=== PATIENT | female | born 1995 | race Caucasian/White ===

== ENCOUNTER 2023-07-24 19:12 | Emergency (ER) | payer OTHER, SELFPAY ==
[2023-07-24 19:25] VITALS: BP 117/79; PULSE 80; RESP 20; TEMP 36.8; O2SAT 99
--- NOTE | 2023-07-24 20:01 | ED.GENADUL_ITS ---
Discharge Plan Disposition Patient Disposition: Home Discharge Details Chief Complaint: Patient Exposure Risk Clinical Impression: Exposure to blood Primary Care Provider: Erin Denise ED Provider: Emily Fenton Discharge Instructions Instructions: Body Substance Exposure (ED) Additional Instructions: Check hepatitis immunization status and see occupational medicine for further monitoring and recommendations. Referrals: Jean Saucedo NP [NURSE PRACTITIONER] - (Thursday morning) Medical Decision Making Patient with blood exposure to hair arm. No exposure to mucous membrane. Routine baseline blood exposure lab obtained. Patient is unsure of her vaccination status and will check with occupational medicine as soon as possible. She will also follow-up with occupational medicine for further monitoring. A hard Copy of exposure counseling reviewed and provided to patient at time of triage. She is stable for discharge to home and will follow-up outpatient with occupational medicine HPI General Mode of arrival: ambulatory . Date/Time Provider Initiated Documentation: 07/24/23 19:26 . Limitations to Documentation: no limitations . Information obtained by: patient . HPI Narrative: This is a 27-year-old female patient no significant past medical history who presents for evaluation after being exposed to blood from another individual while working. She reports she got blood in her hair and on her arm. Denies any exposure to any mucous membranes. Denies exposure in her eyes mouth nares.. She immediately washed the blood off. Related Data Allergies Allergy/AdvReac Type Severity Reaction Status Date / Time No Known Allergies Allergy Verified 12/14/20 11:04 General Stated Complaint: Patient Exposure Risk FLORY: 2 Review of Systems All systems reviewed & are unremarkable except as noted in HPI and below PFSH All Active Problems (Updated 07/24/23 @ 20:09 by Emily Fenton NP) Exposure to blood (Acute) Social History Smoking risk assessment performed?: No Exam Const General: cooperative, healthy appearing, comfortable and no acute distress Nutritional Appearance: thin Orientation: alert, awake and oriented x3 HENMT Head: normal to inspection, normocephalic and atraumatic Mouth: oral mucosae normal Resp Effort & Inspection: normal respiratory effort Cardio Rate: regular rate Rhythm: regular rhythm GI Inspection: normal to inspection Skin Rashes: no rashes Neuro General: patient alert, patient awake and patient oriented x3 Extrem General: normal to inspection and full ROM Course Vital Signs Vital signs: Vital Signs Temperature 36.8 C 07/24/23 19:25 Pulse 80 07/24/23 19:25 Respiratory Rate 20 07/24/23 19:25 Blood Pressure 117/79 07/24/23 19:25 Pulse Oximetry 99 07/24/23 19:25 Temperature 36.8 C 07/24/23 19:25 Pulse 80 07/24/23 19:25 Respiratory Rate 20 07/24/23 19:25 Blood Pressure 117/79 07/24/23 19:25 Blood Pressure Position Sitting 07/24/23 19:25 Pulse Oximetry 99 07/24/23 19:25 Oxygen Delivery Method Room Air 07/24/23 19:25 Oxygen Flow Rate 0 07/24/23 19:25
[2023-07-27 10:38] LABS: HIV-1/2 Ag & Ab Screen Negative (Negative)
[2023-07-27 10:48] LABS: Hepatitis C Ab w Rflx HCV PCR Negative (Negative)
[2023-07-27 11:14] LABS: Hepatitis B Surface Ag Negative (Negative)
== END 2023-07-24 20:26 | disposition home or self-care (01) ==
PROVIDERS: Emergency Provider Nurse Practitioner Acute Care; PCP Family Medicine
DX: Z77.21 Contact with and (suspected) exposure to potentially hazardous body fluids (principal); Y92.89 Other specified places as the place of occurrence of the external cause; Y99.0 Civilian activity done for income or pay
CPT/HCPCS: 86803; 87340; 87389; 99282